=== PATIENT | male | born 1985 | race Caucasian/White ===

== ENCOUNTER → 2019-07-30 | Outpatient (CLI) | payer BC | END | disposition home or self-care (01) | LOC: LABWHC1 15:34 | PROVIDERS: ATTEND Orthopaedic Surgery | DX: S62.347D Nondisplaced fracture of base of fifth metacarpal bone, left hand, subsequent encounter for fracture with routine healing (principal); S62.155A Nondisplaced fracture of hook process of hamate [unciform] bone, left wrist, initial encounter for closed fracture; M79.642 Pain in left hand; E55.9 Vitamin D deficiency, unspecified | CPT/HCPCS: 36415; 82306 ==

== ENCOUNTER → 2019-08-04 | Outpatient (CLI) | payer BC ==
--- NOTE | 2019-08-04 08:36 | CT ---
EXAMINATION TYPE: CT wrist LT wo con DATE OF EXAM: 08/04/2019 COMPARISON: None HISTORY: 33 year-old male, left hand pain, left wrist nondisplaced fx of base 5th metacarpal TECHNIQUE: Contiguous axial scanning of the left wrist without IV contrast. Coronal and sagittal erica nstructions performed. 3-D reconstructions generated on a dedicated independent workstation. CT DLP: 88.9 mGycm Automated exposure control for dose reduction was used. FINDINGS: There seems to be some marginal spurring at the base of the first metacarpal and some degree of dorsa l subluxation at the first CMC joint Oblique fracture along the ulnar-sided base of the fifth metacarpal. There is intra-articular extensi on into the fifth CMC joint with minimal 7 mm of articular surface step-off. No significant displacem ent. 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 No additional acute fracture is identified. IMPRESSION: 1. OBLIQUE, NONDISPLACED FRACTURE ALONG THE ULNAR-SIDED BASE OF THE FIFTH METACARPAL WITH INTRA-ARTIC ULAR EXTENSION INTO THE FIFTH CMC JOINT AND MINIMAL 7 MM OF ARTICULAR SURFACE STEP-OFF. 2. CHRONIC UNUNITED FRACTURE OF THE HAMATE. 3. SUGGESTION OF SOME DEGENERATIVE SPURRING AT THE FIRST CMC JOINT. SLIGHT DORSAL JOINT SUBLUXATION.
== END | disposition home or self-care (01) ==
LOC: RADCTMAIN 07:42
PROVIDERS: ATTEND Orthopaedic Surgery
DX: S52.692A Other fracture of lower end of left ulna, initial encounter for closed fracture (principal); S62.142A Displaced fracture of body of hamate [unciform] bone, left wrist, initial encounter for closed fracture; S63.002A Unspecified subluxation of left wrist and hand, initial encounter